=== PATIENT | female | born 2000 | race Caucasian/White ===

== ENCOUNTER 2023-12-11 00:05 | Emergency (ER) | payer MEDICAID ==
[~2023-12-11] VITALS: Ht 167.6 cm; Wt 83.9 kg
[2023-12-11 00:17] VITALS: BP_SYST 118; PULSE 75; RESP 16; TEMP 96.9; O2SAT 98
[2023-12-11] MEDS ORDERED: INSU100I30 SQ (00:17)
[2023-12-11] MEDS: INSULIN REGULAR, HUMAN 100 UNITS/ML, 3 ML VIAL SUBCUT ONE (00:27)
[2023-12-11] MEDS ORDERED: INSULIN REGULAR, HUMAN 10 UNITS/0.1 ML, 3 ML VIAL ONE (00:28)
== END 2023-12-11 00:31 | disposition home or self-care (01) ==
LOC: SED 00:05
DX: R73.9 Hyperglycemia, unspecified (principal); Z76.0 Encounter for issue of repeat prescription
CPT/HCPCS: 99283; 96372; J1815